=== PATIENT | male | born 1975 | race Caucasian/White ===

== ENCOUNTER 2025-02-28 07:21 | Outpatient (CLI) | payer BC, SELFPAY ==
--- NOTE | ~2025-02-28 | XR_ITS ---
EXAM: XR elbow LT 2V DATE: 02/28/2025 07:44 HISTORY: M25.522 - Chronic posterior medial pain left elbow no trauma . COMPARISON: None available. FINDINGS: Normal mineralization. Slight cortical irregularity over the capitulum. Otherwise no fract ure or dislocation. No lytic or blastic lesion. Minimal degenerative changes. No erosion or periostea l change. Minimal olecranon enthesopathy. Slight prominence of the soft tissues overlying the olecran on. No joint effusion. IMPRESSION: Cortical regularity of the capitulum, as can be seen with prior trauma or osteonecrosis. Consider MR of the elbow for further evaluation. Possible minimal olecranon bursitis. Reviewed, dictated and finalized at location K. IMPRESSION: Cortical regularity of the capitulum, as can be seen with prior tra delia or osteonecrosis. Consider MR of the elbow for further evaluation. Possible minimal olecranon bursitis.
--- OUTSIDE RECORDS SUMMARY | 2025-02-28 07:28 | XMS_ITS | Encounter Summary ---
Author Organization [facility] Address [address] [address] [place] [address] Phone Care Team Providers Care Financial Reporting Manager Name Role Phone Owen Villatoro MD Primary Care Provider [phone] Encounter Details Date Type Department Care Team (Late st Contact Info) Description 11/17/2022 Lab Requisition [facility] [address] [place] [address] Owen Villatoro MD [address] [facility] [address] [place] [address] Social History Tobacco Use Types Packs/Day Years Used Date Smoking Tobacco: Never Assessed Sex and Gender Information Value Date Recorded Sex Assigned at Not on file Legal Sex Male 8:46 AM [employer] Gender Identity Not on file Sexual Orientation Not on file documented as of this encounter Plan of Treatment Not on file documented as of this encounter Procedures Procedure Name Priority Date/Time Associated Diagnosis Comments TESTOSTERONE Routine 11/17/2022 9:50 AM CDT TESTOSTERONE Routine 11/17/2022 9:50 AM CDT CORTISOL Routine 11/17/2022 9:50 AM CDT documented in this encounter Results * TESTOSTERONE (11/17/2022 9:50 AM CDT) TESTOSTERONE, TOTAL 468 240 - 871 ng/dL [facility]CH [id number] A 11/17/2022 11:16 PM CDT [facility] Blood 11/17/2022 9:50 AM CDT 11/17/2022 9:22 PM CDT us Owen Villatoro MD CHEMISTRY ORDERABLES Final Re sult Performing Organization Address City/[facility]/ZIP Co de Phone Number [facility] [address] [place] [address], [place] * CORTISOL (11/17/2022 9:50 AM CDT) CORTISOL 10 mcg/dL [facility] ARCH [id number] F 11/17/2022 11:25 PM CDT [facility] Blood 11/17/2022 9:50 AM CDT 11/17/2022 9:22 PM CDT Narrative [facility] - 11/17/2022 11:25 PM CDT AM: 4 TO 19 mcg/dL PM: Approx. Half of AM Value us Owen Villatoro MD CHEMISTRY ORDERABLES Final Re sult Performing Organization Address City/[facility] Co de Phone Number [facility] [address] [place] [address], [place] documented in this encounter Visit Diagnoses Not on filedocumented in this encounter Care Teams Financial Reporting Manager Relationship Specialty Start Date End Date Owen Villatoro MD [address] [place], [place] [id number] PCP - General General Surgery 05/23/21 documented as of this encounter
--- OUTSIDE RECORDS SUMMARY | 2025-02-28 07:28 | XMS_ITS | Clinical Summary ---
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 [employer] Gender Identity Not on file Sexual Orientation Not on file Plan of Treatment Health Maintenance Due Date Last Done Comments Hepatitis C Virus (HCV) Screening 1975 Cologuard 2021 Colonoscopy 2021 Colorectal Cancer Screening 2021 Immunochemical Fecal Occult Blood 2021 Hepatitis B Immunization (4 of 4 - Hep B Twinrix 4-dose series) 12/06/2021 12/28/2020, 12/13/2020, 12/06/2020 SARS-COV-2 Immunization ( season) 2024 08/11/2021, 10/27/2020, 10/06/2020 Influenza Immunization (Season Ended) 2025 05/25/2023, 05/25/2022, 05/23/2021, Additional history exists Respiratory Syncytial Virus (RSV) Immunization (Adult) (1 - 1-dose 75+ series) 12/05/2051 DTaP/Tdap/Td Immunization Discontinued 12/06/2020, 01/2008 TdaP Immunization Completed 12/06/2020, 12/31/2007 Human Papillomavirus (HPV) Immunization Aged Out No longer eligible based on patient's age to complete this topic Meningococcal Immunization (ACWY) Aged Out No longer eligible based on patient's age to complete this topic Pneumococcal Immunization Combined Aged Out No longer eligible based on patient's age to complete this topic Rotavirus Immunization Aged Out No lo nger eligible based on patient's age to complete this topic Insurance [facility] Care Teams Geological Specialist Relationship Specialty Start Date End Date Owen Villatoro MD [address] [facility] [address] [place] [address] PCP - General General Surgery 05/23/21
== END 2025-02-28 07:22 | disposition home or self-care (01) ==
PROVIDERS: PCP Family Medicine
DX: G89.29 Other chronic pain (principal); M25.522 Pain in left elbow
CPT/HCPCS: 73070